=== PATIENT | male | born 1945 | race Caucasian/White ===

== ENCOUNTER 2023-10-08 06:10 | Day surgery (SDC) | payer MEDICARE, OTHER, SELFPAY ==
--- NOTE | 2023-10-06 08:08 | HPS.HSE ---
Family Physician
-
Family Physician: INTERVIEWE UNKNOWN - PT NOT
Chief Complaint
-
Severe aortic stenosis. Coronary artery disease.
History of Present Illness
The patient is a 78 year old male presenting today after recent reports of lack of energy and endurance. He states 'I definitely feel different over the past year.' He does have a history of coronary artery disease for which he underwent a
CABG x3 in April 2017. He currently takes a baby Aspirin and statin daily because of this. He also has a history of aortic stenosis which is followed with serial echocardiograms. His last echocardiogram on 07/30/2023 demonstrated severe aortic
stenosis with peak and mean gradients of 66 and 40mmHg. It is suspected that his lack of energy could be due to the worsening of his valvular disease. It is recommended he undergo a left and right cardiac catheterization at this time in preparation
for possible TAVR evaluation. He denies any current complaints today such as chest pain, shortness of breath, palpitations, nausea, vomiting, diarrhea, lightheadedness, dizziness, cough, sore throat, or fever.
Medical History
Past Medical History
Past Medical History: Reports Other
Additional Past Medical History:
1. Severe aortic stenosis.
2. Coronary artery disease, status post CABG x3 04/2017.
3. Hypertension.
4. Dyslipidemia.
5. Carotid atherosclerosis without significant stenosis.
6. Mild aortic regurgitation.
7. Mild mitral regurgitation.
8. Mild tricuspid regurgitation.
9. Mild pulmonic regurgitation.
10. Venous varicosities.
11. Hiatal hernia.
12. Nonobstructive Schatzki's ring.
13. Diverticulosis.
14. Hemorrhoids.
15. Osteoarthritis, status post right total knee arthroplasty, 10/2021.
16. Lumbar stenosis with neurogenic claudication, status post right L4-L5 hemilaminectomy 11/2022.
17. Scoliosis.
18. Documented BPH.
19. Iron deficiency anemia, on oral supplementation.
20. Remote history of tobacco abuse.
Past Surgical History: Reports Other
Additional Past Surgical History:
1. CABG x3.
2. Right total knee arthroplasty.
3. Right L4-L5 hemilaminectomy.
4. Right rotator cuff repair x2.
5. Hernia repair x5.
6. Appendectomy.
7. Bilateral cataract extraction.
8. Epidural steroid injection.
9. Colonoscopy.
10. Endoscopy.
Social History
Tobacco: Former Smoker (He is a former 5 cigarette per day smoker who quit tobacco products altogether remotely. )
Alcohol: None
Personal:
Living: Other (He lives in a ranch style home with his . She has dementia and he is her primary caregiver. )
Family History
Family History: Not pertinent
Allergies / Home Medications
Allergy/Medication List:
Home medications:
1. Ascorbic Acid 1000 mg p.o. daily.
2. Aspirin 81 mg p.o. daily.
3. Atorvastatin 40 mg p.o. every evening.
4. Calcium 750 mg p.o. daily.
5. Ferrous Sulfate 325 mg p.o. daily.
6. Ginkgo Biloba 1 tab p.o. daily.
7. Losartan 25 mg p.o. twice a day.
8. Multivitamin 1 tab p.o. daily.
9. Arcadia 3 1000 mg p.o. twice weekly.
�
Allergies:� No known allergies.
Review of Systems
-
A 12 point ROS was completed and negative except as noted: Yes
Physical Exam
Vital Signs
Blood pressure 153/86. Heart rate 76. Respirations 18. Pulse ox 99% on room air.
Height 5 feet, 2 inches. Weight 62.5 kg. BMI 25.2.
Physical Exam
General: Well Developed, Well Nourished and No Apparent Distress
HEENT: NormoCephalic, Moist mucous membranes, Atraumatic and PERRLA
Respiratory: Clear
Cardiac: Regular Rhythm and Murmur (2/6 murmur at left sternal border. )
GI: Soft, Non Tender and Non Distended
Musculoskeletal: Normal Gait & Station
Skin: Warm and Dry
Neuro: AO x 3 and Nonfocal/grossly intact
Laboratory Results
-
DIAGNOSTIC STUDIES as of 10/06/2023: White blood cell count 6.7. Hemoglobin 13.8. Platelet count 197,000. Sodium 138. Potassium 4.7. BUN 25. Creatinine 1.2. Glucose 76. Calcium 9.3. AST 45. ALT 18. Albumin 4.0.
EKG 10/06/2023: Normal sinus rhythm. Minimal voltage criteria for LVH, may be normal variant. ST and T wave abnormality, consider inferior ischemia.
Echocardiogram 07/30/2023: Normal left ventricular size and systolic function. LV ejection fraction is 55-60% by Malone's method of discs. Mild concentric left ventricular hypertrophy. Severe aortic stenosis.
Impression/Plan
-
IMPRESSION/PLAN:
1. Severe aortic stenosis and coronary artery disease: The patient is in need of a left and right cardiac catheterization with Dr. Naun Monge on 10/08/2023. The benefits and risks of the procedure have been explained to the patient. The patient
understands these risks and wishes to proceed. He is aware to continue his baby Aspirin pre-operatively.
[2023-10-06 10:15] VITALS: BMI 25.2
[2023-10-08 06:20] VITALS: BMI 24.8
[2023-10-08 06:41] VITALS: BP 154/80
[2023-10-08] MEDS: LOW STRENGTH ASPIRIN 81 MG PO (06:51)
[2023-10-08] MEDS: NSS 191 ML IV (06:52)
--- NOTE | 2023-10-08 08:37 | CONSULT.STRU ---
Addendum entered and electronically signed by VASILIY Driver 11/14/23 07:07:
Reviewed Mr. Dill with the heart team in the SDM meeting. The team is agreeable to proceed with a TF TAVR utilizing a 29mm Evolut. Will call to schedule.
Original Note:
Consultation
-
Date/Time Consultation Requested: 10/08/2023
Date/Time Consultation Performed: 829
Requesting Provider: Saleem
Performing Provider: Carey
Reason for Consultation: /TAVR
Patient History
Physicians
Family Physician: Jeff
Outpatient Tissue Technician: Kai
Primary Tissue Technician: Kai
History of Present Illness
Mr. Dill is a very pleasant 78 yom that presents with severe symptomatic with increased fatigue. He is the primary caregiver for his with dementia and also works part-time as a [employer]. 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
difficulty, however he says he is exhausted by days end. His echocardiogram from 07/30/2023 is notable for an aortic valve P/M 66/40, FOUZIA 0.7, pk larry 4.05, EF 55-60%, MAC with mild MR, PAP 20-25.
Discussed the pathophysiology and treatment option of aortic stenosis including SAVR and TAVR. Explained the evaluation process comprising of CT scan, CT surgical consult, dental clearance, and a heart team discussion. TAVR booklet, contact
information, appointments, and prescriptions given to patient. Allowed for and answered questions to the best of my ability at the bedside.
Past Medical History
Past Medical History: CAD, HTN, Valvular Disease (severe ) and Other (dyslipidemia, inguinal hernia, varicose veins)
Past Surgical History
Past Surgical History: CABG (CABG x 3 (05/12/2017)), Orthopedic ((R) TKR (10/29/2021), Laminectomy (12/09/2022)) and Other (incarcerated hernia repair with mesh (11/29/2013))
Dental History
Routine dental care Q6m w/ Alexi Dove (P) [phone], (f) [phone] form faxed
Family History
Mother: at Age (82) and Cause of (CVA, alzheimer's)
Father: at Age (84)
Social History
Alcohol: Occasional
Drug: None
Tobacco: Former Smoker
Personal: (Cares for with dementia)
Living: With Spouse
Employment: Employed (part-time [employer] (2 days/ week))
Allergies
Allergy/AdvReac Type Severity Reaction Status Date / Time
No Known Allergies Allergy Verified 10/08/23 06:21
Home Medications
Medication Instructions Recorded Confirmed Type
Ginkgo Biloba 1 tab PO DAILY ##0 05/06/17 10/08/23 History
ascorbic acid (vitamin C) 500 mg 1,000 mg PO DAILY 05/06/17 10/08/23 History
tablet (Vitamin C)
aspirin 81 mg tablet,delayed 81 mg PO DAILY Blood clot 03/27/20 10/08/23 History
release prevention/tx
atorvastatin 40 mg tablet 40 mg PO QPM High cholesterol 03/27/20 10/08/23 History
losartan 25 mg tablet 25 mg PO BID Blood pressure 03/27/20 10/08/23 History
ferrous sulfate 325 mg (65 mg 325 mg PO DAILY #30 tabs 03/30/20 10/08/23 Rx
iron) tablet (Iron (ferrous
sulfate))
multivitamin 1 tab PO DAILY 11/13/22 10/08/23 History
calcium 750 mg PO DAILY 10/03/23 10/08/23 History
omega-3 fatty acids 1,000 mg PO .TWICEWEEKLY 10/03/23 10/08/23 History
STS%
STS %: 2.2
Review of Systems
-
History Source: Patient
General: Reports Fatigue
HEENT: Reports No Symptoms
Respiratory: Reports No Symptoms
Cardiac: Reports No Symptoms
Abdomen/GI: Reports No Symptoms
: Reports No Symptoms
Musculoskeletal: Reports No Symptoms
Skin: Reports No Symptoms
Neurological: Reports No Symptoms
Physical Exam
Vital Signs
Temp 97.8 F 10/08/23 06:41
Pulse 69 10/08/23 06:41
Resp Rate 20 10/08/23 06:41
Blood pressure 154/80 10/08/23 06:41
Blood pressure extremity used: Right upper arm 10/08/23 06:41
Position: Sitting 10/08/23 06:41
SaO2 100 10/08/23 06:41
Can the patient verbally communicate their pain? Yes 10/08/23 06:41
Actual Weight 63.503 kg 10/08/23 06:20
Body Mass Index (BMI) 24.8 10/08/23 06:20
Labs
10/06/2023:
BUN/Creatinine: 25/1.2
GFR>60
HH: 13.8/40.9
Plt: 197K
Diagnostic Studies
Echocardiogram 07/30/2023:
CONCLUSIONS
�Normal left ventricular size and systolic function. LV ejection fraction is 55-
�60% by Malone's method of discs.
�Mild concentric left ventricular hypertrophy.
Aortic Valve
�Calcified, trileaflet aortic valve with peak and mean gradients of 66 and 40
�mmHg, respectively. Estimated FOUZIA is 0.7 cm2., using an LVOT of 2.0 cm. Severe
�aortic stenosis. Mild aortic regurgitation.
Cardiac Catheterization 10/08/2023:
CONCLUSIONS:
1.� Left dominant circulation with chronic total occlusion of the left main coronary artery, proximal LAD and proximal circumflex status post coronary artery bypass grafting (patent SWEENEY to distal LAD, patent sequential SVG to diagonal to OM1).
2.� Mildly elevated filling pressures (PCWP = 17 mmHg at 63.5 kg).
3.� Severe, calcific aortic valve stenosis on echocardiography.
RECOMMENDATIONS:
1. Expectant management after cardiac catheterization via right radial/antecubital approach.
2. Limited weight bearing on the right wrist for one week.
3.� Continue guideline directed medical therapy and secondary preventive therapy.
4.� TAVR evaluation.
CABG 05/12/2017: ([facility])
POSTOPERATIVE DIAGNOSIS:� Three-vessel coronary artery disease with preserved
LV function and mild aortic stenosis.
�
PROCEDURE:� CAB x3 using SWEENEY to LAD and saphenous vein as sequential graft to
the first diagonal and the first obtuse marginal.
Exam
General: Well Developed
HEENT: Normocephalic and Moist Mucous Membranes
Neck: Trachea Midline
Respiratory: Clear
Cardiac: Regular Rhythm and Murmur (IV/ CHE)
GI: Soft, Non Tender and Non Distended
Rectal: Deferred by Provider
Skin: Warm and Dry
Neuro: Awake, Alert and Oriented
Psych: Calm
Assessment / Plan
-
Aortic Stenosis
Continue TAVR evaluation
Trend creatinine (Rx given)
TAVR CT scan (10/30)
CT surgical consult (MPT 10/21)
Frailty testing and KCCQ12 at consult
Continue aspirin
Dental clearance
Heart team discussion
Data Reviewed
-
EKG: Tracing Personally Visualized and interpreted (NSR) and Report Reviewed by me
Process Control Programmer: Report Reviewed by me and Discussed with Physician
Echo: Report Reviewed by me
Labs: Labs Reviewed by me
Old Records: Reviewed (Dr. Quinn OV)
Total Time Spent with Patient (in minutes): 45
--- NOTE | 2023-10-08 09:16 | ITS.CL.CATH ---
[facility] - Catheterization
Cardiac Catheterization
Procedure Report:
CARDIAC CATHETERIZATION REPORT
Date of Procedure: 10/08/2023
Referring: Amari Quinn M.D.
Indication: Severe calcific aortic valve stenosis.
PROCEDURE:
1. Right heart catheterization.
2. Coronary angiography.
3. Bypass angiography.
ACCESS:
6 American left radial artery.
5 American right antecubital vein.
CATHETERS:
1. 5 American balloon wedge.
2. 5 American JOHN.
3. 5 American JL 3.5.
4. 5 American JR4.
5. 5 American AL-1.
HEMODYNAMIC DATA
Weight (kg): 63.5
AO (s/d/x mmHg): 144/75/105
LV (s/x mmHg): Not obtained.
PCWP (a/v/x mmHg): /
PA (s/d/x mmHg): 35/15/22
RV (s/x mmHg): 35/7
RA (a/v/x mmHg):
SVC SvO2 (%): 75.8
PA SvO2 (%): 70.9
SaO2 (%): 95.2
Hbg (g/dL): 13.0
CO (L/min): 4.48
CI (L/min/m2): 2.70
TPG (mmHg): 5
PVR (Lyn Units): 1.12
SVR (dynes*seconds*cm^-5): 1732
AVO2 Diff (Volume %): 4.30
AV gradient (x, mmHg): Not obtained.
AV area (cm2): Not obtained.
LEFT VENTRICULOGRAPHY: Not performed.
CORONARY ANGIOGRAPHY
Dominance: Left.
Left Main: Normal size, bifurcating vessel. The vessel is chronically totally occluded in its origin.
LAD: Normal size vessel with at least moderate tortuosity giving rise to 1 significant diagonal. The vessel is chronically totally occluded at its origin with a second, 90% lesion in its proximal margin. The distal vessel is supplied by patent
SWEENEY graft. The first diagonal is chronically totally occluded at its origin and supplied by a patent sequential vein graft.
Ramus: Congenitally absent.
Circumflex: Large size, dominant vessel giving rise to 2 obtuse marginals and a small LPDA. The vessel is chronically totally occluded at its origin. There is at least moderate disease in the origin of the LPDA. There is a patent bypass graft
to OM1 which backfills the entire circumflex.
RCA: Small, nondominant vessel. There is no significant coronary artery disease.
BYPASS GRAFT ANGIOGRAPHY
SWEENEY to LAD: Normal size graft with end-to-side anastomosis in the distal LAD. There is no evidence of stenosis or graft degeneration.
SVG to D1 to OM1: Normal size sequential graft with [id number] anastomosis with the first diagonal and end-to-side anastomosis to the first obtuse marginal. There is no evidence of stenosis or graft degeneration.
INTERVENTIONS
None.
Closure Device: Vascular band for the left radial artery, manual pressure for the right antecubital vein.
Radiation dose (mGy): 340.38
DAP (cm2.Gy): 31.2711
Fluoroscopy time (minutes): 5.2
Sedation time (minutes): 17
CONCLUSIONS:
1. Left dominant circulation with chronic total occlusion of the left main coronary artery, proximal LAD and proximal circumflex status post coronary artery bypass grafting (patent SWEENEY to distal LAD, patent sequential SVG to diagonal to OM1).
2. Mildly elevated filling pressures (PCWP = 17 mmHg at 63.5 kg).
3. Severe, calcific aortic valve stenosis on echocardiography.
RECOMMENDATIONS:
1. Expectant management after cardiac catheterization via right radial/antecubital approach.
2. Limited weight bearing on the right wrist for one week.
3. Continue guideline directed medical therapy and secondary preventive therapy.
4. TAVR evaluation.
Copy to: Amari Quinn M.D., Higinio Aguilar M.D.
Naun Monge DO, FACC, FACP
[2023-10-08 10:21] VITALS: BP 138/80
[2023-10-08 10:32] VITALS: BP 138/72
[2023-10-08 10:47] VITALS: BP 148/71
[2023-10-08 11:02] VITALS: BP 146/79
[2023-10-08 11:17] VITALS: BP 143/70
== END 2023-10-08 11:49 | disposition home or self-care (01) ==
LOC: CATH 06:10
PROVIDERS: ATTENDING PHYSICIAN Internal Medicine Cardiovascular Disease; FAMILY PHYSICIAN Family Medicine; OTHER PHYSICIAN Internal Medicine Cardiovascular Disease
DX: I25.10 Atherosclerotic heart disease of native coronary artery without angina pectoris (principal); I25.82 Chronic total occlusion of coronary artery; Z95.1 Presence of aortocoronary bypass graft; I08.3 Combined rheumatic disorders of mitral, aortic and tricuspid valves; I10 Essential (primary) hypertension; Z87.891 Personal history of nicotine dependence; Z79.82 Long term (current) use of aspirin
CPT/HCPCS: 93457; C1894; Q9967

== ENCOUNTER → 2023-10-30 09:30 | Outpatient (REF) | payer MEDICARE, OTHER, SELFPAY | LOC: RAD 09:30 | PROVIDERS: ATTENDING PHYSICIAN Nurse Practitioner Acute Care; FAMILY PHYSICIAN Family Medicine | DX: I35.0 Nonrheumatic aortic (valve) stenosis (principal) | CPT/HCPCS: 74174; 75572; Q9967 ==

== ENCOUNTER 2023-12-04 07:42 | Inpatient (IN) | payer MEDICARE, OTHER, SELFPAY ==
[2023-11-25 08:10] VITALS: BMI 24.2
[2023-11-25 09:07] LABS: % Basophils 0.4 % (0-2); % Eosinophils 1.5 % (0-6); % Immature Granulocytes 0.4 % (0-0.5); % Lymphocytes 21.7 % (20.5-51.1); Absolute Eosinophils 0.1 10^3/uL (0-0.7); Absolute Lymphocytes 1.6 10^3/uL (1.2-3.4); Absolute Monocytes 0.9 10^3/uL (0.1-0.6); Absolute Neutrophils 4.6 10^3/uL (1.4-6.5); Hematocrit 39.8 % (39.0-52.0); Hemoglobin 13.6 g/dL (13.0-18.0); Mean Corp Hgb Conc. 34.2 g/dL (33.0-37.0); Mean Corpuscular Hgb 33.5 pg (27.0-31.0); Mean Platelet Volume 9.7 fL (7.4-10.4); Nucleated Red Blood Cells % 0 % (-); Platelet Count 187 10^3/uL (130-400); Red Blood Cell Count 4.06 10^6/uL (4.70-6.10); Red Cell Dist. Width 12.9 % (11.5-14.5); White Blood Cell Count 7.2 10^3/uL (4.8-10.8)
[2023-11-25 09:15] LABS: INR 1.04; PT 13.4 Sec (11.4-14.6)
[2023-11-25 09:16] LABS: APTT 36.9 Sec (23.4-35.0)
[2023-11-25 09:22] LABS: ALT (SGPT) 25 U/L (0-50); AST (SGOT) 95 U/L (17-59); Albumin 4.6 g/dl (3.5-5.0); Alkaline Phosphatase 82 U/L (38-126); Blood Urea Nitrogen 25 mg/dl (9-20); Calcium 9.3 mg/dl (8.4-10.2); Carbon Dioxide 28 mmol/L (22-30); Chloride 104 mmol/L (98-107); Estimated Creatinine Clearance 40 ml/min; Glucose 95 mg/dl (70-99); Potassium 4.4 mmol/L (3.5-5.1); Sodium 137 mmol/L (135-145); Total Bilirubin 0.6 mg/dl (0.2-1.3); Total Protein 7.5 g/dl (6.3-8.2); eGFR 56.93
[2023-11-25 09:23] LABS: Urine Albumin Trace (Neg - Trace); Urine Bilirubin Negative (Negative); Urine Character Clear (Clear); Urine Color Yellow; Urine Glucose Negative (Negative); Urine Ketone Trace (Negative); Urine Leukocyte Negative (Negative); Urine Nitrite Negative (Negative); Urine Occult Blood Negative (Negative); Urine Urobilinogen Negative (Neg - 1+)
[2023-11-25 09:36] LABS: NT-proBNP 1410 pg/ml
--- NOTE | 2023-11-25 10:37 | CM ---
spoke with pt in PAT's, we discussed TAVR teaching including driving and lifting restrictions. he is prev very indep, lives with his in a 1 story home with 2 steps to enter. he has a cane and a walker at home if needed, . he tells me his
has dementia and short term menory difficulties. he is her caregiver, she is physically indep. he has 3 children and mult grandchildren that help out when needed. he is agreeable to a f/u visit from the ct transitional care nurse after dc. cm role
explained and all questions answered.
--- NOTE | 2023-11-25 11:00 | HPS.HSE ---
Family Physician
-
Family Physician: Higinio Aguilar
Timber Management Professor: Amari Quinn
Chief Complaint
-
Symptomatic aortic stenosis with fatigue
History of Present Illness
Mr. Farhat Dill is a very pleasant 78-year-old gentleman who presents today for pre-admission testing for TAVR. His most recent echocardiogram performed on 07/30/2023 demonstrated preserved LV function with severe aortic stenosis with peak/mean
gradients of 65.6/40 mmHg and calculated FOUZIA of 0.7. He also has mild AI, mild MR and TR. His cardiac catheterization demonstrated left dominant circulation with total chronic occlusion of his left main coronary artery, proximal LAD, and proximal
LCx with patent SWEENEY to LAD and patent sequential greater saphenous vein to D1 and OM1. From a symptom standpoint, his main complaint is fatigue which is more notable at the end of the day. He denies any chest pain, palpitations, SOB/WINSTON,
lightheadedness, presyncope/syncope. He states that functionally he feels worse than he did 1 year prior, but again mainly relates this to fatigue. On direct questioning he does state that he gets slightly more winded when ambulating inclines/steps.
His case was reviewed by the heart team at the shared decision making meeting and TAVR was felt to be the appropriate treatment for him utilizing a 29mm Evolut valve via transfemoral access.
Reviewed the risks of TAVR including PPM, bleeding and stroke. Patient will arrive at 0730 on 12/04/2023. He is aware he will receive a call on to confirm this time and answer questions. He will stop his fish oil now and will remain on
all his other medications until Fri. He will take only his aspirin prior to his arrival next . Allowed for and answered quesitons.
Medical History
Past Medical History
Past Medical History: Reports CAD, HTN, Hypercholesterolemia and Other (Varicose veins, recurrent incarcerated inguinal hernia)
Past Surgical History: Reports Cardiac (CABG x3 05/12/2017 (SWEENEY to LAD and sequential greater saphenous vein to D1 and OM1)), Orthopedic (right TKR) and Other (Laminectomy, Left inguinal hernia repair, rotator cuff repair)
Social History
Tobacco: Former Smoker
Alcohol: Occasional
Drug: None
Personal:
Living: With Family
Employment: Retired
Family History
Family History: Not pertinent
Allergies / Home Medications
Allergies reflects when Allergies were last updated in [employer] [facility]
Home Medications with original date entered in [employer] [facility]
Allergy/Medication List:
Allergies:
NKDA
Medications:
Aspir-81 81 MG Tablet Delayed Release 1 tablet Orally Once a day
Atorvastatin Calcium 40 MG Tablet 1 tablet Orally Once a day
Calcium Carbonate 1 tablet Orally Once a day, Notes: 750 mg daily
Ferrous Sulfate 325 MG Capsule as directed Orally
Fish Oil Capsule 1 capsule Orally few times a week
Ginkgo Biloba take 1 capsule Orally once a day
Losartan Potassium 25 MG Tablet 1 tablet Orally Twice a Day
Multi-Vitamins Tablet take 1 tablet by oral route every day with food
Vitamin C 1000 MG Tablet 1 tablet Orally Once a day
Review of Systems
-
History Source: Patient
Constitutional: Reports Fatigue
EENT: Reports No Symptoms
Respiratory: Reports No Symptoms
Cardiac: Reports No Symptoms
Abdomen/GI: Reports No Symptoms
: Reports No Symptoms
Musculoskeletal: Reports No Symptoms
Skin: Reports No Symptoms
Neurological: Reports No Symptoms
Endocrine: Reports No Symptoms
Hematologic/Lymphatic: Reports No Symptoms
Psych: Reports No Symptoms
Physical Exam
Physical Exam
General: Well Developed, Well Nourished, No Apparent Distress and Comfortable
HEENT: NormoCephalic and Moist mucous membranes
Respiratory: Clear and Non Labored Respirations
Cardiac: S1/S2, Regular Rhythm and Murmur (Grade III/)
Breast: Deferred by me
GI: Soft, Non Tender, Non Distended and Normal Bowel Sounds
Rectal: Deferred by Provider
Genito-urinary: Deferred by me
Musculoskeletal: No Clubbing, No Cyanosis, No Edema and Normal Gait & Station
Skin: Warm and Dry
Neuro: AO x 3 and No Motor Deficits
Psych: Calm and Intact Judgment/Insight
Laboratory Results
-
11/25/23 08:30
11/25/23 08:30
Laboratory Results
PT 13.4 Sec (11.4-14.6) 11/25/23 08:30
INR 1.04 11/25/23 08:30
APTT 36.9 Sec (23.4-35.0) H 11/25/23 08:30
Total Bilirubin 0.6 mg/dl (0.2-1.3) 11/25/23 08:30
AST 95 U/L (17-59) H 11/25/23 08:30
ALT 25 U/L (0-50) 11/25/23 08:30
Alkaline Phosphatase 82 U/L (38-126) 11/25/23 08:30
Data Reviewed
-
Diagnostic Radiology: Report Reviewed by me (Chest X-ray: No acute cardiopulmonary disease)
Medical Tests (Nuc Med, Echo, EKG etc): Report Reviewed by me (NSR, no conduction issues noted)
Lab Data: Labs Reviewed by me (WNL)
Old Records: Reviewed (Dr. Victoria consult note)
Impression/Plan
-
IMPRESSION: Severe, symptomatic aortic stenosis
PLAN:
-TAVR utilizing a 29mm Evolut valve via transfemoral access with Dr. Sesay and Dr. Monge.
-Continue aspirin 81mg daily including taking the morning of procedure.
-POD #1/#30 echocardiogram.
-Cardiac rehab consult.
[2023-11-25 11:52] LABS: Glycohemoglobin (HgbA1c) 5.5 % (4.0-5.6)
[2023-12-04] VITALS (20 sets, daily range): BP systolic 85–157; BP diastolic 52–95; BMI 23.4
[2023-12-04] MEDS: LOW STRENGTH ASPIRIN 81 MG PO (08:24)
--- NOTE | 2023-12-04 08:50 | CM ---
Patient in OR today for planned TAVR procedure.
Reviewed initial assessment. Pt. resides in a 1 story home w/ 2 MICHELE w/ spouse.
DC plan is anticipated for home w/ CT Transitional Care RN.
CM to follow.
--- NOTE | 2023-12-04 08:52 | W.CVOR.SURPR ---
CVOR Surgeon Immed Pre Op
-
I have examined this patient prior to performance of the scheduled procedure.
The patient's condition is unchanged from the time of the dictated/written History and
Physical and the patient is able to undergo the scheduled procedure.
TF TAVR, he has had previous sternotomy CABG with patent grafts. We discussed his code status and rescue status:
Ok for CPR
Ok for defib/cardioversion
Ok for meds
Ok for CPB if the issue can be fixed with transcatheter method
NO redo sternotomy
No CPB with intent of sternotomy
He understands and agrees with this algorithm
[2023-12-04 10:32] LABS: ACT-LR - POC 279 Seconds (116-155)
[2023-12-04 11:07] LABS: ACT-LR - POC 247 Seconds (116-155)
--- NOTE | 2023-12-04 11:13 | W.PN.CT.SURG ---
CT Surgery Operative Note
-
OPERATIVE REPORT
Preoperative Diagnosis: Severe aortic valve stenosis, symptomatic
Postoperative Diagnosis: Same
Procedure(s) Performed: Left trans femoral TAVR with a 29 mm Medtronic Evolut Pro+ device
Date of Procedure: 12/04/2023
Comorbidities:
1. Severe symptomatic aortic stenosis, symptomatic
2. Prior cardiac surgery with patent grafts
3. Hypertension
4. Hyperlipidemia
5. Symptomatic anemia/iron deficiency
6. History of BRANDEN
Cardiac Surgeon: Elton Sesay MD, MS
Jet Pilot: Naun Monge MD
Anesthesia: Conscious Sedation, Local
EBL: 100cc
Products: none
Implant: Medtronic Evolut 29mm FX TAVR Valve SN: [id number]
Indication(s) for Procedures: 78-year-old male with severe aortic stenosis. Symptomatic. CT-TAVR protocol revealed acceptable anatomy for a self-expanding TAVR valve. The patient was evaluated by both cardiology, interventional cardiology, and
cardiac surgery and deemed to be appropriate for transcatheter intervention. Shared decision making was to pursue transcatheter intervention.
Start time: 1007hrs
Deployment time: 1040hrs
End time: 1103hrs
Radiation Dose (mGy): 414.90
DAP (cm2.Gy): 39.6955
Fluoroscopy time (minutes): 12.8
Contrast volume (ml): 110
TAVR gradient (mmHg): 4mmHg
Heparin Dose: 5000units
Protamine Dose: 25mg
Final Valve Positioninmm:3mm
Findings: Preoperative LVEF was 60% and was 60% following TAVR without inotropic support. Function was overall normal without regional wall motion abnormalities or dyskinesia. The aortic valve was well seated with only mild PVL (initially it
appeared moderate, however, after some time and preparing for balloon post dilation, it appeared mild and AI index was greater than 25). We opted not to post-dilate. The patient did not require pacing postoperative and was in sinus rhythm. There
was successful placement of 29mm Evolut FX TAVR valve without acute complications. Of note, we required 2 re-captures until we were satisfied with the depth of the valve. Final placement was acceptable at 3mm on the NCC and 3mm on the LCC. A
pre-TAVR LVEDP was measured and found to be 20mmHg.
Access:
1. Device - LCFA, perclose x 2 + 6F angioseal
2. Pigtail - R Radial + TR Band
3. Transvenous Pacer - R CFV
Description of Procedure: The patient was taken to the laborer marine terminal. Their identity and procedure to be performed were verified and they were positioned supine on the laborer marine terminal table. Induction via conscious sedation with local analgesia. The patient was
then prepped and draped from chin to thigh in a sterile fashion. A preoperative time-out was performed with all members of the team present. Arterial and venous access were done with a micropuncture needle with Seldinger technique using US for the
groin and fluoroscopy to identify the femoral heads. The right radial was used for pigtail access. Test pacing revealed capture with excellent threshold. Angiography confirmed proper puncture site and femoral artery integrity. Two Per-Close devices
were used on the TAVR side. An AL1 catheter was used to deliver a extra stiff wire and insertion of the working sheath. An AL1 catheter with a straight stiff wire was used to access the LV which was exchanged for a pigtail catheter and then an LVEDP
was measured here. The valve was prepped and mounted on to the device carrier. An ACT of >250 was achieved. We verified x 3 under fluoroscopy that the valve was mounted correctly with paddles in appropriate position. We than set our parameters to
achieve a co-planar view with the pigtail positioned in the NCC. We advanced the device with it's in-line sheath into the descending thoracic aorta and over the arch into the root and positioned across the aortic valve. Contrast fluoroscopy was used
to visualize the prosthesis across the valve. We performed a quick pre-deployment time out. We verified positioning based on the pigtail and gentle contrast puffs. The valve was slowly deployed to just before annular contact. We paused here and
verified positioning in our cusp overlap view. The pacer was turned on and we continued deployment to annular contact. At this point the valve was functioning and pacing was stopped. We were not satisfied with how shallow the depth was and so we
re-captured and advanced the valve deeper. We then changed to an ODILON view and also found excellent depth on the LCC. We slowly continued to deploy the valve until the crowns and paddles were free from the device. The deployment device was withdrawn
into the descending thoracic aorta while maintaining wire access across the valve. A transthoracic echocardiogram was performed . The pigtail was re-positioned at the level of the crown of the valve and angiography revealed excellent placement and
seating of the valve at the annulus. The TTE did have moderate AI at first, and so the device was removed from the groin and exchanged for a cook sheath. The prosthetic valve was crossed with a pigtail and J wire in preparation for a post-dilation.
On repeat TTE, the AI appeared mild at this point and so we opted not to post-dilate. The sheath was removed from the groin as we cinched down the perclose devices while maintaining wire access - an angiocath was needed. There was acceptable
hemostasis. The pigtail was repositioned into the descending/abdominal and runoff aortogram was performed. There was no significant stenosis or dissection of the bilateral iliofemoral systems with excellent runoff to the SFAs. All wires were removed
and perclose snugged and cut. There was acceptable hemostasis of bilateral groins.
All instrument, sponge, and needle counts were confirmed to be correct x 2 at the end of the operation. The patient was transferred to the cardiac intensive care unit in stable condition.
I, Dr. Elton Sesay, was present, scrubbed for, and performed all critical elements of this procedure.
Elton Sesay MD, MS
Cardiothoracic Surgeon
[facility]
This operative dictation was created using the [email or web address] dictation system. Please excuse any grammatical, typographical, or 'sound alike' errors
--- NOTE | 2023-12-04 11:37 | W.PN.UPDATE ---
Update Note
Progress Note Update
Reviewed Mr. Dill with the heart team in the [facility] preTAVR meeting and confirmed a 29mm Evolut via left transfemoral access. Patient will resume aspirin post TAVR. LVEDP 20mmHg. #29mm Evolut (serial# [id number]) successfully deployed via left
transfemoral access. Post implant MG 4mmHg.
--- NOTE | 2023-12-04 12:18 | ITS.CL.TAVR ---
Underwriting Director - TAVR Report
TAVR PRocedure
Procedure Report:
TRANSCATHETER AORTIC VALVE REPLACEMENT REPORT
Date: 12/04/2023
Referring physician: Amari Quinn M.D.
Preop diagnosis: Severe aortic valve stenosis.
Postop diagnosis: Severe aortic valve stenosis.
Procedure: Transcatheter aortic valve replacement (TAVR) using a # 29 Medtronic CoreValve Evolut Pro XS.
Operators: Naun Monge DO, Elton Sesay M.D.
Findings: Severely calcified and stenotic aortic valve.
Anesthesia: Conscious sedation was provided by the anesthesia staff.
Estimated blood loss: Negligable.
Complications: None.
Condition: Stable
Procedure:
The patient was brought to the cardiac cardiac cath lab radiology technologist after consent and was prepped and draped in standard sterile fashion. Conscious sedation was provided by the anesthesia staff. After a 'Time Out,' the left common femoral artery and the right common
vein were accessed using a modified Seldinger technique with a micropuncture kit under ultrasound guidance. A 6 Bangladeshi sheath was placed in the right femoral vein. Angiography performed through the micropuncture sheath confirmed satisfactory
arterial placement in the left common femoral artery. In the left common femoral artery, the micropuncture sheath was removed and an 8 Bangladeshi dilator was advanced over the wire. The dilator was removed and the left common femoral artery was
preclosed with 2 Perc-Close devices. An 8 Bangladeshi sheath was placed in the left common femoral artery. A temporary pacing wire was advanced through the right femoral vein and into the right ventricle. The pacemaker demonstrated good capture and was
set to back up. The right radial artery was accessed using a modified Seldinger technique. A 6 Bangladeshi radial sheath was placed in the right radial artery and standard cocktail was administered. A 5Fr pigtail catheter was advanced through the
right radial sheath and seated in the non-coronary cusp. The valve overlap (MALONEY 22, CAU 20) and three cusp co-planar (ODILON 22, CAU 31) angles were confirmed on aortography.
An AL-1 catheter was advanced through the 8Fr sheath, the J wire was exchanged for a Lunderquist wire and the catheter and the 8 Fr sheath was removed. A 14 Fr Cook sheath was placed. The CoreValve was prepared on the back table and then inspected
under fluoroscopy. Infolding of the valve was no higher than the 4th node. The AL-1 catheter was advanced over the Lunderquist wire, which was then removed. The catheter was flushed and a straight wire was advanced through the AL-1 catheter. The
straight wire was used to cross the valve, and the AL-1 catheter was prolapsed into the left ventricle. The straight wire was exchanged for an exchange length J-wire and the AL-1 catheter was subsequently exchanged for a 5 Fr angled pigtail
catheter. LVEDP was measured. The double curve Lunderquist wire was advanced through the pigtail catheter and placed in the apex of the left ventricle. The pigtail catheter was removed.
The Cook sheath was removed and the in-line sheath was advanced over the Lunderquist wire through the LCFA into the descending aorta. The Corevalve was then advanced over the aortic arch and into the left ventricle. In the cusp overlap view, the
valve was slowly deployed to the point of flowering. The patient was rapidly paced in a de-escalating rate (from 140 bpm to 80 bpm) as the valve was deployed through the rumble strips to 80%. Injection confirmed a non-coronary cusp implant depth
of 0 mm. Due to concern about migration of the valve, the valve was recaptured and redeployed under rapid pacing. On the second deployment, the valve was implanted more deeply, but was still too high for comfort. Under pacing, the valve was
partially recaptured to bring cannula contact and then advanced an additional 2 mm into the ventricle then redeployed. The image intensifier was taken to the 3 cusp overlap view to remove paralax. Injection in this view confirmed left coronary
cusp implant depth of 3 mm. The decision was made to proceed with full deployment. The delivery handle with slowly rotated counter clockwise until both paddles were released from the superior aspect of the valve. The Lunderquist wire was
partially withdrawn to lift the nosecone of the valve delivery device. The delivery device was withdrawn to the descending aorta and re-assembled. Transthoracic echocardiogram showed mild to moderate paravalvular insufficiency. Aortogram showed
good valve deployment and mild aortic valve insufficiency. Mean gradient across the valve was 4 mmHg by echo. Given the mild to moderate paravalvular insufficiency, we prepared to post dilate the valve. The inline sheath was withdrawn and the
Cook sheath was reinserted over the Lunderquist wire. The angled pigtail was readvanced and prolapsed into the left ventricle through the TAVR valve. At this time, we decided to calculate an aortic regurgitation index. This index was 0.33
(pathologic <0.25). Given this reassuring finding, we repeated the echo which showed that in the time spent crossing the aortic valve, the paravalvular leak had decreased to mild. Ultimately, we elected to abort post dilation given the
self-expanding nature of the valve and the fact that the PVL was already improving.
The Cook sheath was removed over the Lunderquist wire and hemostasis was achieved using the two Perc-Close devices and a 6 Bangladeshi Angio-Seal. Lower extremity angiography showed excellent hemostasis and good runoff without evidence perforation or
extravasation. The pigtail catheter was removed over a J-wire and right radial artery hemostasis was obtained using a vascular band. There was no evidence of consistent pacing requirement. The temporary pacer was removed. The venous sheath was
removed. Manual pressure was applied with good hemostasis of the right venous access. The patient was taken to recovery in good condition.
Implant Depth
Non-Coronary (mm): 3
Left Coronary (mm): 3
Radiation
Dose (mGy): 414.90
DAP (cm2.Gy): 39.6955
Fluoroscopy time (minutes): 12.8
TAVR Echo Gradient (mmHg): 4
LV (s/x, mmHg): 168/18
TAVR Cath Gradient (mmHg): 5
Conclusions:
1. Successful placement of # 29 CoreValve Evolute Pro using a left percutaneous transfemoral approach with no acute complications.
2. Mild paravalvular leak.
3. Mildly elevated filling pressures (LVEDP = 18 mmHg at 61.7 kg).
Naun Monge, DO, FACC, FACP
Copy: Amari Quinn M.D., Higinio Aguilar M.D.
--- NOTE | 2023-12-04 12:20 | PTCARENOTE ---
Pt c/o bilateral hands and fingers feel asleep, constant pins and needles. Pt describes they just feel asleep. Pt with good normal pulses, normal cap refill and feels me touching fingers with sharp and dull . Ct Pa made aware, will monitor.
--- NOTE | 2023-12-04 13:17 | PTCARENOTE ---
Rec'd pt from dairy and food laboratory assistant post TAVR. Pt awake and alert, no neuro deficits. Rt and left groin dsgs intact, no bleeding, no hematoma. +pulses to bilateral LE. Pt c/o numbness tingling to bilateral upper extremities. Pt with ST depressions noted on
monitor. Nila DAVID over to see patient and aware of pre and post TAVR EKG's. Pt denies chest pain, denies sob. RA. See worklist for VS/I and O and groin checks.
[2023-12-04] MEDS: ANCEF 10 IV ×2 (13:31)
[2023-12-04] MEDS: TYLENOL 650 MG PO ×2 (13:33→22:37)
--- NOTE | 2023-12-04 16:34 | PTCARENOTE ---
TR band removed. Dsg applied. no hematoma, no bleeding, Pt assisted oob up in chair, tolerated well. Pt eating dinner at this time with no c/o. Pt states numbness and tingling gone from Rt arm and only about 10% in left arm. No neuro deficits noted.
[2023-12-04] MEDS: LIPITOR 40 MG PO (17:40)
[2023-12-04] MEDS: ANCEF 5 IV (17:42)
[2023-12-04] MEDS: COZAAR 25 MG PO (19:45)
--- NOTE | 2023-12-04 23:20 | PTCARENOTE ---
Received pt at handoff. Very pleasant. AOX3. Assessment noted as documented. VSS. Tele- SR. HR 60-80s. R radial, b/l groin c/d/i. C/o headache. Tylenol administered- see NOV. Offers no other complaints. Currently in bed; call suly w/in reach.
[2023-12-05 04:00] VITALS: BP 131/68
[2023-12-05 04:17] VITALS: BMI 24.0
[2023-12-05 04:47] LABS: Hematocrit 35.2 % (39.0-52.0); Hemoglobin 12.2 g/dL (13.0-18.0); Mean Corp Hgb Conc. 34.7 g/dL (33.0-37.0); Mean Corpuscular Hgb 33.9 pg (27.0-31.0); Mean Corpuscular Volume 97.8 fL (80.0-94.0); Mean Platelet Volume 9.7 fL (7.4-10.4); Platelet Count 170 10^3/uL (130-400); Red Cell Dist. Width 13.1 % (11.5-14.5)
[2023-12-05 05:14] LABS: Blood Urea Nitrogen 21 mg/dl (9-20); Calcium 8.4 mg/dl (8.4-10.2); Carbon Dioxide 24 mmol/L (22-30); Chloride 107 mmol/L (98-107); Estimated Creatinine Clearance 48 ml/min; Glucose 95 mg/dl (70-99); Potassium 4.5 mmol/L (3.5-5.1); Sodium 134 mmol/L (135-145); eGFR > 60.00
--- NOTE | 2023-12-05 05:19 | W.PN.CT ---
Today's Communication / Plan
-
-POD#1
-no overnight issues
-NSR, no bradycardia
-F/u cxr, echo
-Current meds: ASA, Feosol, atorvastatin, losartan
-dispo planning
Assessment / Plan
-
Acute on chronic HFpEF, - s/p L TF TAVR #29 mm MDT Evolut Pro + on 12/04/[address] Sesay
Post ODALYS LVEF 60%, mild PVL
-CAD s/p CABG x3
-L inguinal hernia repair
-T RKR
Subjective
Procedure
s/p L TF TAVR #29 mm MDT Evolut Pro + on 12/04/23
-
Date of Service: December 05, 2023
Objective Data
-
Lab Results
12/05/23 04:13
12/05/23 04:13
PT 13.4 Sec (11.4-14.6) 11/25/23 08:30
INR 1.04 11/25/23 08:30
APTT 36.9 Sec (23.4-35.0) H 11/25/23 08:30
Vital Signs
Vital Signs
Temp Pulse Resp BP Pulse Ox
98.3 F 63 16 131/68 94
12/05/23 05:18 12/05/23 04:45 12/05/23 05:18 12/05/23 04:00 12/05/23 05:18
CT Intake/Output/Weight
12/04/23 12/04/23 12/05/23
06:59 18:59 06:59
Intake Total 250 / 370 120 / 370
Output Total 600 / 600
Balance -350 / -230 120 / -230
SaO2: 94
Physical Exam
-
General: Awake, Oriented and AOx3
Cardiovascular: Regular rate & rhythm, No Murmurs and No Rub
Respiratory: Clear and Equal
Incision: Clean, Dry and Dressing Intact
Extremities: No Edema
Data Reviewed
-
Lab Results: Results Reviewed
Medications: Active Meds Reviewed
ECG: Report Reviewed
[2023-12-05 07:30] VITALS: BP 127/75
--- NOTE | 2023-12-05 07:49 | W.DCSUMMARY ---
Discharge Summary
Discharge Data
Date of Admission: 12/04/23
Date of Discharge: 12/05/23
Total time spent discharging patient (in min): 33
-
Pending Results: No
Hospital Course
Primary care physician:
Dr. Higinio Marquez
Outpatient coal getter:
Dr. Quinn
Inpatient consultants:
CBC
Procedures:
1. Transfemoral aortic valve replacement with #29 CoreValve evolute Pro�
Primary Diagnosis:
1. Severe aortic stenosis
Secondary Diagnoses:
1. Coronary artery disease status postcardiac surgery with patent grafts
2. Hypertension
3. Hyperlipidemia
4. Symptomatic anemia/iron deficiency
5. History of acute kidney injury
HPI: 78-year-old male with symptomatic severe aortic stenosis presents for an elective transcatheter aortic valve replacement.
Hospital course: Patient presented for an elective transfemoral transcatheter aortic valve replacement. After the procedure patient returned to the Managing Broker recovery area on no pressors. Bilateral groins remained stable. And he was transferred to
the IVU for further recovery. On 12/04 postop day #1, patient's chest x-ray remained stable and repeat echo cardiogram showed peak/mean gradients are 15/7mmHg. Mild to moderate aortic regurgitation. Patient was deemed stable for discharge and all
discharge instructions and further appointments were reviewed with the patient.
Home medication changes:
No changes
Discharge Plan
-
Patient Disposition: Home (Routine Discharge)
Discharge Diagnosis/Procedures: TF-TAVR
Condition: Good
Diet: Low Cholesterol and 2 Gram Sodium
Activity: As tolerated
Driving Restrictions: No driving for 1 week
Bathing Restrictions: OK to Shower
Others Tests: 30 Day Follow Up Echocardiogram: 01/06/2024 at 10:20am in the [place] Office
Other Services: Cardiac Rehab
Wound Care: Please do not apply lotions, creams or powders to groin areas. Please monitor for increased pain, swelling, drainage or redness. Notify your doctor if any occur.
Specialty Instructions: Weigh Daily- Call MD for wt gain/loss 3 lbs overnight/5 lbs in 1 week
Activity Restrictions/Additional Instructions:
Please call to make appointments for Phase II Cardiac Rehab, When ready:
[facility]: [phone]
Referrals:
CT Transitional Care Nurse [Outside] (The Cardiothoracic Transitional Care Nurse will call you to set up a visit in 1-2 days.)
Higinio Aguilar MD [Family Provider] -
Mar Huston CRNP [Specified Professional Personl] - 01/09/24 9:20 am
Prescriptions:
Continued
ascorbic acid (vitamin C) [Vitamin C] 500 MG tablet
1,000 mg PO DAILY
Patient Comments:
aspirin 81 MG tablet,delayed release (DR/EC)
81 mg PO DAILY
Patient Comments:
losartan 25 MG tablet
25 mg PO BID
Patient Comments:
atorvastatin 40 MG tablet
40 mg PO QPM
Patient Comments:
ferrous sulfate [Iron (ferrous sulfate)] 325 MG tablet
325 mg PO DAILY Qty: 30 0RF
Patient Comments:
multivitamin Tablet
1 tab PO DAILY
Patient Comments:
calcium 750 MG
750 mg PO DAILY
Patient Comments:
Held
omega-3 fatty acids Capsule
1,000 mg PO .TWICEWEEKLY
Hold Instructions: Resume on 12/12/23.
Patient Comments:
Discontinued
Ginkgo Biloba
1 tab PO DAILY Qty: 0
Patient Comments:
Discharge Orders:
Discharge Patient (As Directed); Ordered 12/05/23
Ordered By: Raya Rojas
Care Plan Goals
Care Plan Goals:
Problem: Readiness for enhanced knowledge related to diagnosis and treatment plan
Goal: Understand your diagnosis and treatment plan needs, including medications if applicable.
Instructions: Know your diagnosis, underlying causes and treatment plan options, including medications if applicable. Consult with your health care team to learn about your diagnosis and treatment plan, including medications if applicable.
[2023-12-05] MEDS: TYLENOL 650 MG PO (07:52)
[2023-12-05] MEDS: THERAGRAN 1 TABLET PO (07:53)
[2023-12-05] MEDS: FEOSOL 325 MG PO (07:53)
[2023-12-05] MEDS: VITAMIN C 1000 MG PO (07:53)
[2023-12-05] MEDS: COZAAR 25 MG PO (07:53)
[2023-12-05] MEDS: ASPIR LOW (ENTERIC COATED) 81 MG PO (07:54)
[2023-12-05] MEDS: TUMS EX (EXTRA STRENGTH) CHEWABLE 1 TABLET PO (07:55)
--- NOTE | 2023-12-05 08:26 | W.PN.CD ---
Today's Communication / Plan
-
- TTE
- tele
- possible d/c later today
Impression / Plan
-
Impression: 78M with severe symptomatic -> TAVR Nov 14
Plan
Severe
- uncomplicated TAVR
- Check Echo today
- review tele
Short SVT - asymptomatic. Baseline bradycardia. Monitor for now.
CAD - stable -> continue medical therapy
HTN - ARB
Dyslipidemia
Dispo
- TTE
- tele
- possible d/c later today
Subjective: No CP, palps, or dyspnea.
Physical Exam
Vital Signs/Labs
Vital Signs
Temp Pulse Resp BP Pulse Ox
36.8 C 80 16 131/68 94
12/05/23 08:12 12/05/23 06:45 12/05/23 08:12 12/05/23 04:00 12/05/23 08:12
12/04/23 12/05/23 12/06/23
06:59 06:59 06:59
Actual Weight 139 lb 12.369 oz
12/05/23 04:13
12/05/23 04:13
PT 13.4 Sec (11.4-14.6) 11/25/23 08:30
INR 1.04 11/25/23 08:30
APTT 36.9 Sec (23.4-35.0) H 11/25/23 08:30
11/25/23
08:30
Jky-R-Bvslscdevkz Pept 1410
Physical Exam
Constitutional: No acute distress
EENT: Anicteric and Moist mucous membranes
Cardiovascular: Rhythm & rate is regular, Pedal edema is absent, Diastolic murmur absent and Systolic murmur present
Respiratory: Respiratory effort normal
GI: Soft, Distention absent and Non tender
Neuro/Psych: Alert
Other: Cath Site
C/D/I
Data Reviewed
-
Date of Service: December 05, 2023
EKG: Other (Short SVT)
--- NOTE | 2023-12-05 09:55 | CM ---
Chart reviewed. Patient is independent of ADLS, lives with his in a [address], [facility], ambulates with a SPC and rolling walker. Plan is for the patient to return home with CT Transitional RN. CM to follow
--- NOTE | 2023-12-05 11:41 | W.PN.ANS.POP ---
Anesthesia Post Operative
- Anesthesia Post Op Note
Vital Signs Stable-See Nursing Note: Yes
Airway Patent: Yes
Adequate Pain Control: Yes
Change in Mental Status: No
Current Postoperative Nausea & Vomiting: No
Anesthesia Complications: No
General Anesthetic Recall: No
Unplanned Admission: No
Post Op Hydration Adequate: Yes
[2023-12-05 11:43] VITALS: BP 151/58
[2023-12-05 11:48] VITALS: BP 130/62
[2023-12-05 11:59] VITALS: BP 130/629; BP 151/28; PULSE 66; O2SAT 96; O2SAT 98
[2023-12-05 12:06] VITALS: BP 142/66
--- NOTE | 2023-12-05 14:05 | PTCARENOTE ---
pt received this am with no c/o other than a headache that was relieved with tylenol. Pt OOB ad jai in the room. Gait steady. Bilateral groin sites and radial site with dressings dry and intact with no hematomas. Pt discharged to home with a friend.
Discharge instructions given and reviewed with good understanding.
--- NOTE | 2023-12-09 09:12 | PN.CDI ---
CDI
- -
CDI:
Physician Documentation Request
Admit Date: 12/04/23 07:42
Dear Doctor Shama,
The diagnosis of acute on chronic HFpEF was documented on 12/04 in cardiothoracic progress notes but is not consistently noted in subsequent documentation.
Diuretic was not given during hospitalization.
Patient does not seem to take a diuretic as an outpatient.
H&P does not include heart failure in past medical history.
Please clarify the following:
____ - acute on chronic HFpEF is a valid diagnosis for this patient.
____ - acute on chronic HFpEF was ruled out
____ - Other
Use of terms such as suspected, likely, concern for, or probable (associated with a specific diagnosis that is being evaluated, monitored, or treated as if it exists) are acceptable and can be coded in the inpatient setting, when documented at the
time of discharge.
Thank you,
Cheryl Mendoza RN, BSN
CDI Specialist
tiger text
Please use your independent medical judgment in providing your response.
--- NOTE | 2023-12-09 09:29 | W.PN.UPDATE ---
Update Note
Progress Note Update
CDI QUERY RESPONSE
acute on chronic HFpEF is valid diagnosis for this patient
== END 2023-12-05 14:07 | disposition home or self-care (01) | DRG 266 ==
LOC: IVU 07:42
PROVIDERS: Physician Assistant Medical; ADMITTING PHYSICIAN Thoracic Surgery (Cardiothoracic Vascular Surgery); CONSULT PHYSICIAN Internal Medicine Cardiovascular Disease; FAMILY PHYSICIAN Family Medicine
PROC: 02RF38Z Replacement of Aortic Valve with Zooplastic Tissue, Percutaneous Approach (ICD-10-PCS; 2023-12-04)
DX: I35.0 Nonrheumatic aortic (valve) stenosis (principal); Z00.6 Encounter for examination for normal comparison and control in clinical research program; I50.33 Acute on chronic diastolic (congestive) heart failure; I47.10 Supraventricular tachycardia, unspecified; I25.10 Atherosclerotic heart disease of native coronary artery without angina pectoris; E78.00 Pure hypercholesterolemia, unspecified; I11.0 Hypertensive heart disease with heart failure; D50.9 Iron deficiency anemia, unspecified; R00.1 Bradycardia, unspecified; Z95.1 Presence of aortocoronary bypass graft; Z87.891 Personal history of nicotine dependence; Z79.82 Long term (current) use of aspirin
CPT/HCPCS: 93308; 33361; 36415; 71045; 71046; 80048; 80053; 81003; 82248; 83036; 83880; 85025; 85027; 85347; 85610; 85730; 86850; 86900; 86901; 87070; 93005; 93306; 93321; 93325; C1760; C1769; C1894; Q9967

== ENCOUNTER → 2024-01-26 09:57 | Outpatient (REF) | payer MEDICARE, OTHER, SELFPAY | LOC: HWRCS 09:57 | PROVIDERS: ATTENDING PHYSICIAN Internal Medicine Cardiovascular Disease; FAMILY PHYSICIAN Family Medicine | DX: I35.0 Nonrheumatic aortic (valve) stenosis (principal) | CPT/HCPCS: 93306 ==

== ENCOUNTER 2025-02-28 14:16 | Emergency (ER) | payer MEDICARE, OTHER, SELFPAY ==
[2025-02-28 14:22] VITALS: BP 106/65
[2025-02-28 14:51] LABS: % Basophils 0.4 % (0-2); % Eosinophils 1.2 % (0-6); % Immature Granulocytes 0.3 % (0-0.5); % Lymphocytes 10.5 % (20.5-51.1); % Monocytes 10.3 % (1.7-9.3); % Neutrophils 77.3 % (42.2-75.2); Absolute Eosinophils 0.1 10^3/uL (0-0.7); Absolute Lymphocytes 0.8 10^3/uL (1.2-3.4); Absolute Monocytes 0.8 10^3/uL (0.1-0.6); Absolute Neutrophils 5.8 10^3/uL (1.4-6.5); Hematocrit 28.8 % (39.0-52.0); Hemoglobin 9.4 g/dL (13.0-18.0); Mean Corp Hgb Conc. 32.6 g/dL (33.0-37.0); Mean Corpuscular Hgb 33.8 pg (27.0-31.0); Mean Corpuscular Volume 103.6 fL (80.0-94.0); Mean Platelet Volume 9.9 fL (7.4-10.4); Nucleated Red Blood Cells % 0 % (-); Platelet Count 172 10^3/uL (130-400); Red Blood Cell Count 2.78 10^6/uL (4.70-6.10); Red Cell Dist. Width 15.6 % (11.5-14.5); White Blood Cell Count 7.5 10^3/uL (4.8-10.8)
[2025-02-28 15:12] LABS: ALT (SGPT) 23 U/L (0-50); AST (SGOT) 53 U/L (17-59); Albumin 3.9 g/dl (3.5-5.0); Alkaline Phosphatase 77 U/L (38-126); Blood Urea Nitrogen 28 mg/dl (9-20); Carbon Dioxide 23 mmol/L (22-30); Chloride 109 mmol/L (98-107); Glucose 96 mg/dl (70-99); Potassium 5.1 mmol/L (3.5-5.1); Sodium 139 mmol/L (135-145); Total Bilirubin 0.6 mg/dl (0.2-1.3); Total Protein 6.2 g/dl (6.3-8.2); eGFR 47.65
[2025-02-28 16:24] VITALS: BMI 21.9
[2025-02-28 16:26] VITALS: BP 160/93
[2025-02-28 16:27] VITALS: BP 162/75
[2025-02-28 17:00] VITALS: BP 123/63
--- NOTE | 2025-02-28 17:23 | ED.GENMED ---
History of Present Illness
General
Chief Complaint: Abnormal Lab Value
Source: patient and family
Time Seen by Provider: 02/28/25 17:06
History of Present Illness
History of Present Illness:
This patient is a 79-year-old male presents emergency department because he was directed to by his family doctor because outpatient labs noted a hemoglobin level of 8.7 on February 22. His most recent measurement was in January and it was 12.9. He states
that recently he has felt more tired than usual. He denies chest pain, shortness of breath, headache, dizziness, urinary symptoms, anorexia, nausea, vomiting, fever, chills, black stool, bleeding, or other complaints. Patient has a history of iron
deficiency anemia for which he takes iron. Last documented colonoscopy that I can find in [facility] is from 2019 which was generally unremarkable.
Past History
Past History
ED Past Medical History: CAD, HTN, Hypercholesterolemia and Other (anemia)
ED Past Surgical History: Appendectomy, Cardiac and Other (hernia)
Social History
Tobacco: Non-smoker
Alcohol: Occasional
Drug: None
Personal:
Living: with family
Employment: Employed ([employer])
Phy Exam
Physical Exam
Physical Exam:
GENERAL: Alert , in no apparent distress, vibrant, well-appearing
EYE: pupils equal and reactive
NECK: Supple, no significant adenopathy.
ENT: o/p clr, mmm.
CARDIAC: Regular rate and rhythm .
LUNGS: Clear breath sounds bilaterally, no acute respiratory distress, no wheezes/rales/rhonchi
ABDOMEN: Soft, without focal tenderness, no r/g, no cvat
NEUROLOGICAL: Alert and oriented, no focal neuro deficits
SKIN: Warm and dry, skin intact, no jaundice.
MUSCULOSKELETAL: No edema, well perfused.
PSYCH: Normal and appropriate interaction.
Course
Orders/Labs/Results
Orders:
Orders
02/28/25 14:24
Electrocardiogram (*1) Urgent
Reason for Study: Other
Other Reason for Exam: low hgb
EKG- Treatment ONCE
02/28/25 14:32
Type+Screen Urgent
Complete Blood Count/With Diff Urgent
Comprehensive Metabolic Panel Urgent
02/28/25 17:25
Electrocardiogram (*1) Urgent
Reason for Study: Other
Other Reason for Exam: fatigue
EKG- Treatment ONCE
Abnormal Lab Results
02/28/25
14:32
RBC 2.78 L 10^6/uL
(4.70-6.10)
Hgb 9.4 L g/dL
(13.0-18.0)
Hct 28.8 L %
(39.0-52.0)
MCV 103.6 H fL
(80.0-94.0)
MCH 33.8 H pg
(27.0-31.0)
MCHC 32.6 L g/dL
(33.0-37.0)
RDW 15.6 H %
(11.5-14.5)
Absolute Lymphs (auto) 0.8 L 10^3/uL
(1.2-3.4)
Absolute Monos (auto) 0.8 H 10^3/uL
(0.1-0.6)
Neutrophils % 77.3 H %
(42.2-75.2)
Lymphocytes % 10.5 L %
(20.5-51.1)
Monocytes % 10.3 H %
(1.7-9.3)
Chloride 109 H mmol/L
(98-107)
BUN 28 H mg/dl
(9-20)
Creatinine 1.5 H mg/dL
(0.7-1.3)
Total Protein 6.2 L g/dl
(6.3-8.2)
02/28/25 14:32
02/28/25 14:32
Vital Signs
Initial and Last Documented VS:
Initial Vital Signs
Temp Pulse Resp BP Pulse Ox
98.3 F 88 16 106/65 98
02/28/25 14:22 02/28/25 14:22 02/28/25 14:22 02/28/25 14:22 02/28/25 14:22
Last Documented Vital Signs
Temp Pulse Resp BP Pulse Ox
98.3 F 88 16 106/65 98
02/28/25 14:22 02/28/25 14:22 02/28/25 14:22 02/28/25 14:22 02/28/25 14:22
*Critical Care Note
Total Time (30-74mins, 75-104mins- exclusive of procedures): Not Applicable
Update Note
Update Note:
Patient presents to the Emergency Department with ___fatigue
Number and Complexity of Problems Addressed at the Encounter
� Chronic conditions affecting care:
� Acute Exacerbation and/or Progression of Chronic Illness:
� Differential Diagnosis includes: But not limited to worsening anemia, electrolyte disturbance, ACS, etc. etc.
Amount and/or Complexity of Data to be Reviewed and Analyzed
� I performed an independent evaluation of and my interpretation is:
EKG:
CT:
Xrays:
Laboratory Studies: Hemoglobin today is 9.4, mild BRANDEN noted
Other:
� Review of other/old records reveals:
� Clinical information was obtained by an independent historian:
� Prescriptions/Medications Considered but not given:
� Further testing considered but not performed:
Risk of Complications and/or Morbidity or Mortality of Patient Management
� Social determinants of health affecting care:
� Discussion with other providers (PCP, Hospitalists, Consultants, etc): Vitals and labs noted, patient is extremely well-appearing and is certainly not a candidate for a blood transfusion at this time. No active bleeding
identified. Case discussed with patient, daughter who is bedside, and also Dr. Aguilar, reviewed his labs. Dr. Aguilar agrees that best course of treatment at this time is not to admit him to the hospital transfused, but rather have him follow-up
with Dr. Aguilar tomorrow for repeat/continued testing and treatment. Close discharge instructions reviewed with patient regarding importance of this follow-up and reasons to return to the ER.
� Escalation of care including admission/observation vs risk of discharge considered:
ED Attending Note
-
Portions of this chart may have been created with voice recognition software.� Occasional wrong word or��sound alike� substitutions may have occurred due to the inherent limitations of voice recognition software.
Discharge Plan
Departure
Patient Disposition: Home (Routine Discharge)
Date of Disposition: 02/28/25
Time of Disposition: 17:46
Patient with high blood pressure during this ER visit?: No
Condition: Good
Discharge Problem:
Anemia
Instructions: Anemia in adults, possibly from low iron - ED discharge instructions
Prescriptions:
No Action
ascorbic acid (vitamin C) [Vitamin C] 500 MG tablet
1,000 mg PO DAILY
Patient Comments:
aspirin 81 MG tablet,delayed release (DR/EC)
81 mg PO DAILY
Patient Comments:
losartan 25 MG tablet
25 mg PO BID
Patient Comments:
multivitamin Tablet
1 tab PO DAILY
Patient Comments:
omega-3 fatty acids Capsule
1,000 mg PO .TWICEWEEKLY
Patient Comments:
acetaminophen 325 mg Tablet
650 mg PO Q6H PRN (Reason: mild pain)
calcium 500 mg Tablet
500 mg PO DAILY
rosuvastatin 40 mg tablet
40 mg PO DAILY
PreserVision AREDS-2 250-90-40-1 mg Capsule
1 tab PO DAILY
ferrous sulfate [Iron (ferrous sulfate)] 325 MG tablet
325 mg PO BID
Patient Comments:
Referrals:
Higinio Aguilar MD [Family Provider, [facility]] - Tomorrow
Activity Restrictions/Additional Instructions:
PLEASE FOLLOW-UP WITH YOUR DOCTOR TOMORROW. IF YOU DEVELOP BLEEDING, BLACK STOOL, SHORTNESS OF BREATH, CHEST PAIN, LIGHTHEADEDNESS, OR OTHER WORRISOME SIGNS, PLEASE RETURN TO THE ER IMMEDIATELY!
Interventions
Interventions:
*Risk Screen - Suicide Last Done: 02/28/25 14:22
*General Assessment Last Done: 02/28/25 16:24
*Neglect/Abuse Screening Last Done: 02/28/25 14:22
*ED- Fall Risk Assessment Last Done: 02/28/25 16:24
*ED COVID-19 Vaccine History Last Done: 02/28/25 16:24
Discharge Date and Time
Print Language: MALTESE
== END 2025-02-28 18:15 | disposition home or self-care (01) ==
LOC: EMR 14:16
PROVIDERS: Student in an Organized Health Care Education/Training Program; EMERGENCY PHYSICIAN Emergency Medicine; FAMILY PHYSICIAN Family Medicine
DX: D64.9 Anemia, unspecified (principal); I25.10 Atherosclerotic heart disease of native coronary artery without angina pectoris; I10 Essential (primary) hypertension; E78.00 Pure hypercholesterolemia, unspecified; Z90.49 Acquired absence of other specified parts of digestive tract
CPT/HCPCS: 99284; 80053; 85025; 86850; 86900; 86901; 93005

== ENCOUNTER → 2025-04-12 09:15 | Outpatient (REF) | payer MEDICARE, OTHER, SELFPAY | LOC: RAD 09:15 | PROVIDERS: ATTENDING PHYSICIAN Nurse Practitioner Family; FAMILY PHYSICIAN Family Medicine | DX: M79.605 Pain in left leg (principal); M79.662 Pain in left lower leg; I73.9 Peripheral vascular disease, unspecified | CPT/HCPCS: 93922; 93925 ==